=== PATIENT | female | born 1965 | race Caucasian/White ===

== ENCOUNTER 2017-12-09 07:55 | Inpatient (IN) | payer OTHER ==
[~2017-12-09] VITALS: Ht 167.6 cm; Wt 71.0 kg
[~2017-12-09 07:55] MED LIST: AMOX875 PO; CYCL-36 PO; PERC7.5T13 PO; VICO10TA PO; WARF6 PO; ZOVI400T15 PO
[2017-12-09 07:57] VITALS: BP 138/75; PULSE 91; RESP 18; TEMP 99.2; O2SAT 98
[2017-12-09] MEDS ORDERED: diphenhydrAMINE HCL 50 MG/ML VIAL IV PUSH ONE (08:15)
[2017-12-09] MEDS ORDERED: SODIUM CHLOR 0.9% 1000 ML INJ 1,000 ML IV ONE (08:15)
[2017-12-09] MEDS ORDERED: PROCHLORPERAZINE INJ 10 MG/2 ML VIAL IV PUSH ONE (08:15)
--- NOTE | 2017-12-09 08:26 | PD ---
HPI Chief Complaint: Headache Time Seen by Provider: 08:03 Travel History International Travel<30 days: No Contact w/Intl Traveler<30days: No Traveled to known affect area: No History of Present Illness HPI This is a 52-year-old female who presents to the emergency department with headache that started 5 days ago, intermittent, moderate severity mostly at the front of her head feeling like a throbbing. She says she is not prone to headaches. She says 3 weeks ago she banged her head several times on a metal box by accident. She says she vomited immediately after that but did not come to the hospital. She says over the past 5 days in the setting of the headache she is also felt quite dizzy and nauseous. She says yesterday she had a temperature of 101. She has a history of factor V Leiden and is supposed to be on Coumadin but does not take it. PFSH Past Medical History Blood Disorders: Yes (FACTOR V) Cancer: No Cardiovascular Problems: No Diminished Hearing: No Endocrine: No Gastrointestinal Disorders: Yes (COLITIS) Genitourinary: No Headaches: Yes Immune Disorder: No Musculoskeletal: No Neurologic: No Psychiatric: No Reproductive: No Respiratory: No Tetanus Vaccination: > 5 Years Influenza Vaccination: No ?: Not Past Surgical History Abdominal Surgery: Yes (CLOTS IN COLON/INTESTINE) AICD: No Arteriovenous Shunt: No Hysterectomy: Yes Insulin Pump: No Joint Replacement: No Other Surgery: Yes Social History Alcohol Use: Yes ( 7 DRINKS PER WEEK) Tobacco Use: Yes (CIGARETTES, 1 PPD) Substance Use: No Allergies-Medications (Allergen,Severity, Reaction): Coded Allergies: codeine (Verified Adverse Reaction, Severe, VOMITING, 12/09/17) Reported Meds & Prescriptions Reported Meds & Active Scripts Active No Active Prescriptions or Reported Medications Review of Systems Except as stated in HPI: all other systems reviewed are Neg Physical Exam Narrative GENERAL:Well appearing, no acute distress SKIN: Focused skin assessment warm and dry. HEAD: Atraumatic. Normocephalic. EYES: Pupils equal and round. No injection or drainage. ENT: Moist mucous membranes NECK: Trachea midline. CARDIOVASCULAR: Regular rate and rhythm. No murmur appreciated. RESPIRATORY: Clear to auscultation. Breath sounds equal bilaterally. GASTROINTESTINAL: Abdomen soft, non-tender, nondistended. MUSCULOSKELETAL: No obvious deformities. NEUROLOGICAL: Awake and alert. No obvious cranial nerve deficits. No dysarthria or aphasia. No upper or lower extremity drift. No upper extremity ataxia. Visual gr intact. PSYCHIATRIC: Appropriate mood and affect; insight and judgment normal. Data Data Last Documented VS Vital Signs Date Time Temp Pulse Resp B/P (MAP) Pulse Ox O2 Delivery O2 Flow Rate FiO2 12/09/17 08:04 78 16 99 Room Air 12/09/17 07:57 99.2 138/75 (96) Orders Orders Influenzae A/B Antigen (12/09/17 08:14) Ct Brain W/O Iv Contrast(Rout) (12/09/17 ) Complete Blood Count With Diff (12/09/17 08:14) Comprehensive Metabolic Panel (12/09/17 08:14) Urinalysis - C+S If Indicated (12/09/17 08:14) Sodium Chlor 0.9% 1000 Ml Inj (Ns 1000 M (12/09/17 08:15) Prochlorperazine Inj (Compazine Inj) (12/09/17 08:15) Diphenhydramine Inj (Benadryl Inj) (12/09/17 08:15) Mri Brain W&W/O Contrast (12/09/17 ) Mrv Brain W/Wo Contrast (12/09/17 ) Blood Gas Venous (Vbg) (12/09/17 09:15) Blood Culture (12/09/17 10:08) Lactic Acid (12/09/17 10:08) Lactic Acid Sepsis Protocol (12/09/17 10:17) Bacterial Antigen Csf (12/09/17 10:17) Csf Hsv I/Ii Dna,Pcr (12/09/17 10:17) Csf Cell Count + Differential (12/09/17 10:17) Glucose, Csf (12/09/17 10:17) Total Protein, Csf (12/09/17 10:17) Csf Culture And Gram Stain (12/09/17 10:17) Blood Culture (12/09/17 10:17) Ceftriaxone Inj (Rocephin Inj) (12/09/17 10:17) Vancomycin Inj (Vancomycin Inj) (12/09/17 11:30) Ampicillin Inj (Ampicillin Inj) (12/09/17 10:17) Acyclovir Inj (Zovirax Inj) (12/09/17 11:30) Fentanyl Inj (Fentanyl Inj) (12/09/17 10:30) Lidocaine 1% Inj (50 Ml) (Xylocaine 1% I (12/09/17 10:30) Lidocaine Pf 1% Inj (Xylocaine-Mpf 1% In (12/09/17 10:29) Admit Order (Ed Use Only) (12/09/17 11:00) Labs Laboratory Tests Test 12/09/17 08:26 12/09/17 09:24 White Blood Count 5.4 TH/MM3 Red Blood Count 4.67 MIL/MM3 Hemoglobin 14.2 GM/DL Hematocrit 42.9 % Mean Corpuscular Volume 91.8 FL Mean Corpuscular Hemoglobin 30.4 PG Mean Corpuscular Hemoglobin Concent 33.1 % Red Cell Distribution Width 13.3 % Platelet Count 163 TH/MM3 Mean Platelet Volume 8.4 FL CBC Comment AUTO DIFF Differential Total Cells Counted 100 Neutrophils % (Manual) 44 % Band Neutrophils % 32 % Lymphocytes % 13 % Monocytes % 8 % Eosinophils % 1 % Basophils % 1 % Neutrophils # (Manual) 4.2 TH/MM3 Myelocytes 1 % Differential Comment FINAL DIFF MANUAL Platelet Estimate NORMAL Platelet Morphology Comment NORMAL Red Cell Morphology Comment NORMAL Urine Color YELLOW Urine Turbidity CLEAR Urine pH 6.0 Urine Specific [place] 1.020 Urine Protein 30 mg/dL Urine Glucose (UA) NEG mg/dL Urine Ketones TRACE mg/dL Urine Occult Blood NEG Urine Nitrite NEG Urine Bilirubin NEG Urine Urobilinogen LESS THAN 2.0 MG/DL Urine Leukocyte Esterase NEG Urine RBC 5 /hpf Urine WBC 1 /hpf Urine Squamous Epithelial Cells 1 /hpf Urine Mucus FEW /lpf Microscopic Urinalysis Comment CULT NOT INDICATED Blood Urea Nitrogen 9 MG/DL Creatinine 0.63 MG/DL Random Glucose 92 MG/DL Total Protein 7.6 GM/DL Albumin 3.4 GM/DL Calcium Level 8.2 MG/DL Alkaline Phosphatase 99 U/L Aspartate Amino Transf (AST/SGOT) 52 U/L Alanine Aminotransferase (ALT/SGPT) 32 U/L Total Bilirubin 0.4 MG/DL Sodium Level 134 MEQ/L Potassium Level 4.9 MEQ/L Chloride Level 107 MEQ/L Carbon Dioxide Level 17.0 MEQ/L Anion Gap 10 MEQ/L Estimat Glomerular Filtration Rate 98 ML/MIN Blood Gas Puncture Site RN OBTAINED SAMPLE Blood Gas Patient Temperature 98.6 Venous Blood pH 7.38 Venous Blood Partial Pressure CO2 46 mmHg Venous Blood Partial Pressure O2 31 mmHg Venous Blood HCO3 26 mmol/L Venous Blood Oxygen Saturation 58 % Venous Blood Oxygen Content 10.6 Vol % Venous Blood Base Excess 1.7 mmol/L Oxygen Delivery Device ROOM AIR MDM Medical Decision Making Medical Screen Exam Complete: Yes Emergency Medical Condition: Yes Interpretation(s) No leukocytosis 32% bands Bicarb is 17 Lactic acid is 0.5 VBG: PH is 7.38 Urinalysis is negative for infection Last 24 hours Impressions Head/Brain Mag Res Venography 12/09/17 0000 Signed Impressions: Service Date/Time: Saturday, December 09, 2017 11:28 - CONCLUSION: Negative exam. Dural sinuses are patent throughout. Grant Arriaza MD Head CT 12/09/17 0000 Signed Impressions: Service Date/Time: Saturday, December 09, 2017 08:49 - CONCLUSION: 1. No acute intracranial abnormality is identified. Tuan Skinner MD Brain MRI 12/09/17 0000 Signed Impressions: Service Date/Time: Saturday, December 09, 2017 11:28 - CONCLUSION: No acute disease. Dung Matute MD Differential Diagnosis Meningitis, encephalitis, migraine headache, sinusitis, viral syndrome, influenza, dural vein thrombosis Narrative Course This is a 52-year-old female who presents to the emergency department with an intractable headache that has been going on for several days associated with a fever overnight to 101. She is ill-appearing on exam. She was placed on a monitor and an IV was established. Labs are unremarkable except for a 32% bandemia increasing my suspicion for underlying infectious etiology of her symptoms. I attempted a lumbar puncture in the emergency department but was unsuccessful. Patient will be admitted for broad-spectrum antibiotics to cover for meningitis, MRI MRV was also obtained given the patient's history of hypercoagulopathy to rule out dural vein thrombosis. We will obtain a lumbar puncture under radiology guidance. Physician Communication Physician Communication Discussed with Dr. Murry Diagnosis Primary Impression: Headache Qualified Codes: R51 - Headache Admitting Information Admitting Physician Requests: Admit Scripts No Active Prescriptions or Reported Meds Florencia Alvarez MD December 09, 2017 08:26
[2017-12-09 08:54] LABS: HEMATOCRIT 42.9 % (35.0-46.0); HEMOGLOBIN 14.2 GM/DL (11.6-15.3); MEAN CELL VOLUME 91.8 FL (80.0-100.0); MEAN CORPUSCULAR HEMOGLOBIN 30.4 PG (27.0-34.0); MEAN CORPUSCULAR HGB CONC 33.1 % (32.0-36.0); MEAN PLATELET VOLUME 8.4 FL (7.0-11.0); PLATELET COUNT 163 TH/MM3 (150-450); RED BLOOD COUNT 4.67 MIL/MM3 (4.00-5.30); RED CELL DISTRIBUTION WIDTH 13.3 % (11.6-17.2); WHITE BLOOD COUNT 5.4 TH/MM3 (4.0-11.0)
[2017-12-09 09:09] LABS: BILIRUBIN, URINE NEG (NEG); BLOOD, URINE NEG (NEG); GLUCOSE,URINE NEG (NEG); KETONE, URINE TRACE mg/dL (NEG); MUCUS URINE FEW /lpf (OCC); NITRITE,URINE NEG (NEG); SQUAMOUS EPITHELIAL CELL URINE 1 /hpf (0-5); URINE COLOR YELLOW (YELLW/STRAW); URINE LEUKOCYTE ESTERASE NEG (NEG)
[2017-12-09 09:10] LABS: ALBUMIN 3.4 GM/DL (3.4-5.0); AST (GOT) 52 U/L (15-37); BLOOD UREA NITROGEN 9 MG/DL (7-18); CALCIUM 8.2 MG/DL (8.5-10.1); CHLORIDE 107 MEQ/L (98-107); CREATININE 0.63 MG/DL (0.50-1.00); GLOMERULAR FILTRATION RATE 98 ML/MIN (>89); GLUCOSE,RANDOM 92 MG/DL (74-106); SODIUM (NA) 134 MEQ/L (136-145)
[2017-12-09 09:11] LABS: ALT (GPT) 32 U/L (10-53)
[2017-12-09 09:13] LABS: ALKALINE PHOSPHATASE 99 U/L (45-117); TOTAL BILIRUBIN ADULT 0.4 MG/DL (0.2-1.0); TOTAL PROTEIN 7.6 GM/DL (6.4-8.2)
--- NOTE | 2017-12-09 09:13 | RADRPT ---
EXAM DATE/TIME: 12/09/2017 08:49 [facility] COMPARISON: No previous studies available for comparison. INDICATIONS : Headache and dizziness since hit head a few days ago. RADIATION DOSE: 56.35 CTDIvol (mGy) MEDICAL HISTORY : None SURGICAL HISTORY : Hysterectomy. ENCOUNTER: Initial ACUITY: 1 day PAIN SCALE: 6/10 LOCATION: cranial TECHNIQUE: Multiple contiguous axial images were obtained of the head. Using automated exposure control and adj ustment of the mA and/or kV according to patient size, radiation dose was kept as low as reasonably a chievable to obtain optimal diagnostic quality images. DICOM format image data is available electro nically for review and comparison. FINDINGS: CEREBRUM: The ventricles are normal for age. No evidence of midline shift, mass lesion, hemorrhage or acute in farction. No extra-axial fluid collections are seen. POSTERIOR FOSSA: The cerebellum and brainstem are intact. The 4th ventricle is midline. The cerebellopontine angle i s unremarkable. EXTRACRANIAL: The visualized portion of the orbits is intact. SKULL: The calvaria is intact. No evidence of skull fracture. CONCLUSION: 1. No acute intracranial abnormality is identified. Tuan Skinner MD on December 09, 2017 at 9:06 Board Certified Radiologist. This report was verified electronically.
[2017-12-09 09:35] LABS: BANDS 32 % (0-6); BASOPHILS 1 % (0-2); LYMPHOCYTES 13 % (9-44); MONOCYTES 8 % (0-8); MYELOCYTES 1 % (0-0); NEUTROPHIL # MANUAL DIFF 4.2 TH/MM3 (1.8-7.7); POLYS (SEG NEUTROPHILS) 44 % (16-70)
[2017-12-09] MEDS ORDERED: cefTRIAXone INJ 2,000 MG in SODIUM CHLORIDE 0.9% INJ 100 ML IV STA (10:17)
[2017-12-09] MEDS ORDERED: AMPICILLIN INJ 2,000 MG in SODIUM CHLORIDE 0.9% INJ 100 ML IV STA (10:17)
[2017-12-09] MEDS ORDERED: LIDOCAINE HCL 1% PF 30 ML VIAL ONE (10:29)
[2017-12-09] MEDS ORDERED: LIDOCAINE HCL 1% 50 ML VIAL INFIL ONE (10:30)
[2017-12-09] MEDS ORDERED: MAGNESIUM HYDROXIDE SUSP 30 ML CUP PO PRN (11:30)
[2017-12-09] MEDS ORDERED: SODIUM CHLORIDE 0.9% IV ONE (11:30)
[2017-12-09] MEDS ORDERED: ACYCLOVIR IV ONE (11:30)
[2017-12-09] MEDS ORDERED: SODIUM CHLORIDE 0.9% FLUSH 10 ML FLUSH IV FLUSH PRN (11:30)
[2017-12-09] MEDS ORDERED: NALOXONE HCL 0.4 MG/ML AMP IV PUSH PRN (11:30)
[2017-12-09] MEDS ORDERED: VANCOMYCIN INJ 1,550 MG in SODIUM CHLORID 0.9% 500 ML INJ 500 ML IV ONE (11:30)
[2017-12-09 11:44] LABS: INTERNATIONAL NORMALIZED RATIO 1.1 RATIO; PROTHROMBIN TIME - PATIENT 11.6 SEC (9.8-11.6)
--- NOTE | 2017-12-09 12:25 | RADRPT ---
EXAM DATE/TIME: 12/09/2017 11:28 [facility] COMPARISON: No previous studies available for comparison. INDICATIONS : Cephalgia. CONTRAST: 20 cc Omniscan (gadodiamide) IV MEDICAL HISTORY : factor 5 SURGICAL HISTORY : Hysterectomy. Tubal ligation. ENCOUNTER: Initial ACUITY: 1 day PAIN SCORE: 3/10 LOCATION: cranial TECHNIQUE: Multiplanar, multisequence MRI of the brain was performed both prior to and following the administrat ion of paramagnetic contrast. FINDINGS: CEREBRUM: The ventricles are normal for age. No evidence of midline shift, mass lesion, hemorrhage or acute in farction. No extraaxial fluid collections are seen. The pituitary gland and suprasellar cistern are normal in configuration. WHITE MATTER: No significant signal abnormalities are seen in the white matter. POSTERIOR FOSSA: The cerebellum and brainstem are intact. The 4th ventricle is midline. The cerebellopontine angle is unremarkable. The cerebellar tonsils are normal in position. DIFFUSION IMAGING: No focal areas of restricted diffusion are seen. No evidence of acute infarction. EXTRACRANIAL: The visualized portions of the orbits and paranasal sinuses are unremarkable. POST-CONTRAST: No abnormal areas of parenchymal or dural enhancement. No evidence of blood-brain barrier breakdown. CONCLUSION: No acute disease. Dung Matute MD on December 09, 2017 at 12:23 Board Certified Radiologist. This report was verified electronically.
[2017-12-09] MEDS ORDERED: GADODIAMIDE PF 287 MG/ML 20 ML VIAL (for RAD MRI) IVCONTRAST ONE (12:30)
[2017-12-09 12:35] VITALS: BP 132/79; PULSE 100; RESP 18; TEMP 98.9; O2SAT 99
--- NOTE | 2017-12-09 12:36 | HHI.HP ---
[facility] Primary Care Physician No Primary Care Physician Admission Diagnosis sepsis Diagnoses: Travel History International Travel<30 Days: No Contact w/Intl Traveler <30 Da: No Traveled to Known Affected Are: No History of Present Illness Mrs. Galdamez is a 52 year old female. She came into the hospital today mostly because of headache with some neck involvement. She has been having fevers at home. Symptoms started approximately 3 days ago. Her only sick contact has been her boyfriend who has a viral upper respiratory tract infection. 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 Progressive headaches with some neck stiffness and back pain. She also complains of joint pains and has been having rigors at home recently. She has decreased appetite with some nausea. No significant vomiting. No diarrhea. At baseline she is a smoker and has factor V Leiden deficiency. Maximum fever at home was 101 or in height. Affected headache areas are frontal and occipital areas. In the ER she was started on acyclovir and vancomycin. No other complaints at this time. Lumbar puncture has been ordered and obtained, results are pending. Review of Systems Constitutional: COMPLAINS OF: Fatigue, Fever, Chills Eyes: DENIES: Diplopia, Eye inflammation, Eye pain Ears, nose, mouth, throat: DENIES: Hearing loss, Vertigo, Nasal discharge Respiratory: DENIES: Cough, Snoring, Wheezing Cardiovascular: DENIES: Chest pain, Palpitations, Syncope, Dyspnea on Exertion Gastrointestinal: COMPLAINS OF: Nausea, DENIES: Abdominal pain, Black stools, Bloody stools Musculoskeletal: COMPLAINS OF: Joint pain, Muscle aches, Stiffness, Back pain, Neck pain Integumentary: DENIES: Abnormal pigmentation, Pruritus, Rash, Nail changes Hematologic/lymphatic: DENIES: Bruising, Lymphadenopathy Immunologic/allergic: DENIES: Eczema, Urticaria Neurologic: COMPLAINS OF: Headache, DENIES: Abnormal gait, Localized weakness, Paresthesias Psychiatric: DENIES: Anxiety, Confusion, Hallucinations Past Family Social History Past Medical History Factor V Leiden deficiency History of colitis Past Surgical History Colon surgery secondary to clots Hysterectomy Reported Medications Reported Meds & Active Scripts Active No Active Prescriptions or Reported Medications None Allergies: Coded Allergies: codeine (Verified Adverse Reaction, Severe, VOMITING, 12/09/17) Family History Alzheimer's disease is present in the patient's mother The patient's father has factor V Leiden, a history of CVA and hypertension. Social History Patient drinks 1 alcoholic beverage per day Patient smokes 1 pack per day No illicit drug abuse Physical Exam Vital Signs Vital Signs Date Time Temp Pulse Resp B/P (MAP) Pulse Ox O2 Delivery O2 Flow Rate FiO2 12/09/17 08:04 78 16 99 Room Air 12/09/17 07:57 99.2 91 18 138/75 (96) 98 Physical Exam GENERAL: NAD, A&Ox3 HEAD: Normocephalic. NECK: Supple, trachea midline. No lymphadenopathy. EYES: No scleral icterus. No injection or drainage. CARDIOVASCULAR: Regular rate and rhythm without murmurs, gallops, or rubs. RESPIRATORY: Breath sounds equal bilaterally. No accessory muscle use. GASTROINTESTINAL: Abdomen soft, non-tender, nondistended. MUSCULOSKELETAL: No cyanosis, or edema. SKIN: Warm and dry. NEURO: No focal neurological deficitis. Laboratory Laboratory Tests Test 12/09/17 08:26 12/09/17 09:24 12/09/17 11:06 White Blood Count 5.4 Red Blood Count 4.67 Hemoglobin 14.2 Hematocrit 42.9 Mean Corpuscular Volume 91.8 Mean Corpuscular Hemoglobin 30.4 Mean Corpuscular Hemoglobin Concent 33.1 Red Cell Distribution Width 13.3 Platelet Count 163 Mean Platelet Volume 8.4 CBC Comment AUTO DIFF Differential Total Cells Counted 100 Neutrophils % (Manual) 44 Band Neutrophils % 32 Lymphocytes % 13 Monocytes % 8 Eosinophils % 1 Basophils % 1 Neutrophils # (Manual) 4.2 Myelocytes 1 Differential Comment FINAL DIFF MANUAL Platelet Estimate NORMAL Platelet Morphology Comment NORMAL Red Cell Morphology Comment NORMAL Urine Color YELLOW Urine Turbidity CLEAR Urine pH 6.0 Urine Specific [place] 1.020 Urine Protein 30 Urine Glucose (UA) NEG Urine Ketones TRACE Urine Occult Blood NEG Urine Nitrite NEG Urine Bilirubin NEG Urine Urobilinogen LESS THAN 2.0 Urine Leukocyte Esterase NEG Urine RBC 5 Urine WBC 1 Urine Squamous Epithelial Cells 1 Urine Mucus FEW Microscopic Urinalysis Comment CULT NOT INDICATED Blood Urea Nitrogen 9 Creatinine 0.63 Random Glucose 92 Total Protein 7.6 Albumin 3.4 Calcium Level 8.2 Alkaline Phosphatase 99 Aspartate Amino Transf (AST/SGOT) 52 Alanine Aminotransferase (ALT/SGPT) 32 Total Bilirubin 0.4 Sodium Level 134 Potassium Level 4.9 Chloride Level 107 Carbon Dioxide Level 17.0 Anion Gap 10 Estimat Glomerular Filtration Rate 98 Blood Gas Puncture Site RN OBTAINED SAMPLE Blood Gas Patient Temperature 98.6 Venous Blood pH 7.38 Venous Blood Partial Pressure CO2 46 Venous Blood Partial Pressure O2 31 Venous Blood HCO3 26 Venous Blood Oxygen Saturation 58 Venous Blood Oxygen Content 10.6 Venous Blood Base Excess 1.7 Oxygen Delivery Device ROOM AIR Prothrombin Time 11.6 Prothromb Time International Ratio 1.1 Lactic Acid Level 0.5 Date/Time Source Procedure Growth Status 12/09/17 11:05 Blood Peripheral Aerobic Blood Culture Pending Received 12/09/17 11:05 Blood Peripheral Anaerobic Blood Culture Pending Received 12/09/17 08:26 Nasal Washing Influenza Types A,B Antigen (SVETLANA) - Final NEGATIVE FOR FLU A AND B ANTIGEN.... Complete Result Diagram: 12/09/1782512/09/17825 Imaging Last Impressions Head/Brain Mag Res Venography 12/09/17 0000 Signed Impressions: Service Date/Time: Saturday, December 09, 2017 11:28 - CONCLUSION: Negative exam. Dural sinuses are patent throughout. Grant Arriaza MD Head CT 12/09/17 0000 Signed Impressions: Service Date/Time: Saturday, December 09, 2017 08:49 - CONCLUSION: 1. No acute intracranial abnormality is identified. Tuan Skinner MD Brain MRI 12/09/17 0000 Signed Impressions: Service Date/Time: Saturday, December 09, 2017 11:28 - CONCLUSION: No acute disease. Dung Matute MD Septic Shock Reassessment Septic shock perfusion: reassessment completed Caprini VTE Risk Assessment Caprini VTE Risk Assessment: No/Low Risk (score <= 1) Caprini Risk Assessment Model Point Value = 1 Point Value = 2 Point Value = 3 Point Value = 5 Age 41-60 Minor surgery BMI > 25 kg/m2 Swollen legs Varicose veins or History of unexplained or recurrent spontaneous Oral contraceptives or hormone replacement Sepsis (< 1 month) Serious lung disease, including pneumonia (< 1 month) Abnormal pulmonary function Acute myocardial infarction Congestive heart failure (< 1 month) History of inflammatory bowel disease Medical patient at bed rest Age 61-74 Arthroscopic surgery Major open surgery (> 45 min) Laparoscopic surgery (> 45 min) Malignancy Confined to bed (> 72 hours) Immobilizing plaster cast Central venous access Age >= 75 History of VTE Family history of VTE Factor V Leiden Prothrombin [id number] Lupus anticoagulant Anticardiolipin antibodies Elevated serum homocysteine Heparin-induced thrombocytopenia Other congenital or acquired thrombophilia Stroke (< 1 month) Elective arthroplasty Hip, pelvis, or leg fracture Acute spinal cord injury (< 1 month) Prophylaxis Regimen Total Risk Factor Score Risk Level Prophylaxis Regimen 0-1 Low Early ambulation 2 Moderate Order ONE of the following: *Sequential Compression Device (SCD) *Heparin 5000 units SQ BID 3-4 Higher Order ONE of the following medications: *Heparin 5000 units SQ TID *Enoxaparin/Lovenox 40 mg SQ daily (WT < 150 kg, CrCl > 30 mL/min) *Enoxaparin/Lovenox 30 mg SQ daily (WT < 150 kg, CrCl > 10-29 mL/min) *Enoxaparin/Lovenox 30 mg SQ BID (WT < 150 kg, CrCl > 30 mL/min) AND/OR *Sequential Compression Device (SCD) 5 or more Highest Order ONE of the following medications: *Heparin 5000 units SQ TID (Preferred with Epidurals) *Enoxaparin/Lovenox 40 mg SQ daily (WT < 150 kg, CrCl > 30 mL/min) *Enoxaparin/Lovenox 30 mg SQ daily (WT < 150 kg, CrCl > 10-29 mL/min) *Enoxaparin/Lovenox 30 mg SQ BID (WT < 150 kg, CrCl > 30 mL/min) AND *Sequential Compression Device (SCD) Assessment and Plan Problem List: (1) Meningitis ICD Code: G03.9 - Meningitis, unspecified (2) Factor V Leiden ICD Code: D68.51 - Activated protein C resistance Assessment and Plan 52-year-old female admitted secondary to suspicious meningitis Meningitis Viral versus bacterial Follow lumbar puncture results Follow cerebrospinal fluid cultures Vancomycin Acyclovir Continue antiemetics Continue pain treatments as needed Follow for improvement Factor V Leiden deficiency Follow clinically No active bleeding Nicotine dependence NicoDerm Patient counseled for smoking DVT prophylaxis SCDs Tuan Murry MD December 09, 2017 12:36
[2017-12-09] MEDS: SODIUM CHLOR 0.9% 1000 ML INJ 1,000 ML IV SCH ×2 (12:42→23:00)
--- NOTE | 2017-12-09 13:04 | RADRPT ---
EXAM DATE/TIME: 12/09/2017 11:28 COMPARISON: MRI BRAIN W & W/O CONTRAST, December 09, 2017, 11:28. INDICATIONS : Cephalgia. CONTRAST: 20 cc Omniscan (gadodiamide) IV MEDICAL HISTORY : factor 5 SURGICAL HISTORY : Hysterectomy. Tubal ligation. ENCOUNTER: Initial ACUITY: 1 day PAIN SCORE: 3/10 LOCATION: cranial FINDINGS: Dural sinuses are patent throughout. CONCLUSION: Negative exam. Dural sinuses are patent throughout. Grant Arriaza MD on December 09, 2017 at 12:59 Board Certified Radiologist. This report was verified electronically.
[2017-12-09] MEDS ORDERED: Vancomycin Consult Pharmacy 1 EA OTHER SCH (15:15)
--- NOTE | 2017-12-09 15:22 | RADRPT ---
EXAM DATE/TIME: 12/09/2017 14:07 [facility] COMPARISON: No previous studies available for comparison. INDICATIONS : Patient with a history of headaches. MEDICAL HISTORY : Factor V Colitis Headaches SURGICAL HISTORY : None ENCOUNTER: Initial ACUITY: 1 day PAIN SCORE: 4/10 LOCATION: Headache LUMBAR PUNCTURE TIME: 1402 hours FLUORO TIME: 0.35 minutes IMAGE SERIES: 1 ACCESS LEVEL: L4-5 FLUID: 11.5 cc of clear CSF was collected and sent to the laboratory for analysis. PROCEDURE : 1. Fluoroscopic guided lumbar puncture. The risks, benefits and alternatives to the procedure were explained and verbal and written consent w as obtained. The site was prepped in sterile fashion. Full sterile technique was used, including ca p, mask, sterile gloves and gown and a large sterile sheet. Hand hygiene and 2% chlorhexidine and/or betadine/alcohol prep was utilized per protocol for cutaneous antisepsis. The skin and subcutaneous tissues were infiltrated with local anesthetic solution. With fluoroscopic guidance the lumbar thecal sac was punctured at the level above. The fluid describ ed above was removed without difficulty. The patient tolerated the procedure well and there were no complications. CONCLUSION: Uncomplicated fluoroscopically guided lumbar puncture. Denzel Yip MD on December 09, 2017 at 15:19 Board Certified Radiologist. This report was verified electronically.
[2017-12-09] MEDS ORDERED: NICOTINE 21 MG/24 HR PATCH T-DERMAL ONE (15:30)
[2017-12-09 16:00] VITALS: BP 105/56; PULSE 82; RESP 18; TEMP 99.3; O2SAT 92
[2017-12-09 17:43] LABS: RBC TUBE #2 3 /MM3; SUPERNATE COLOR TUBE #1 CLEAR (CLEAR); VOLUME TUBE # 1 2.8 ML; WBC TUBE #2 5 /MM3 (0-10)
[2017-12-09 17:44] LABS: CSF LYMPHOCYTES 99 %; CSF MONOCYTES 1 %; CSF NEUTROPHILS 0 %
[2017-12-09 20:00] VITALS: BP 135/74; PULSE 80; RESP 18; TEMP 100.7; O2SAT 96
[2017-12-09] MEDS ORDERED: ACETAMINOPHEN 325 MG TAB PO ONE (20:45)
[2017-12-09] MEDS: SODIUM CHLORIDE 0.9% FLUSH 10 ML FLUSH IV FLUSH SCH (20:56)
[2017-12-09] MEDS: SODIUM CHLORIDE 0.9% IV SCH (20:56)
[2017-12-09] MEDS: ACYCLOVIR IV SCH (20:56)
[2017-12-09] MEDS ORDERED: VANCOMYCIN INJ 1,000 MG in SODIUM CHLOR 0.9% 250 ML INJ 250 ML IV SCH (23:00)
[2017-12-10] VITALS: BP 114/55; PULSE 70; RESP 18; TEMP 98.8; O2SAT 97
[2017-12-10 04:00] VITALS: BP 130/65; PULSE 73; RESP 18; TEMP 98.3; O2SAT 95
[2017-12-10] MEDS: SODIUM CHLOR 0.9% 1000 ML INJ 1,000 ML IV SCH ×2 (04:23→19:09)
[2017-12-10] MEDS: VANCOMYCIN INJ 1,250 MG in SODIUM CHLOR 0.9% 250 ML INJ 250 ML IV SCH ×2 (04:23→15:07)
[2017-12-10] MEDS: ACETAMINOPHEN/HYDROcodone 325 MG/5 MG TAB PO PRN ×2 (04:40→19:08)
[2017-12-10] MEDS: SODIUM CHLORIDE 0.9% IV SCH ×2 (05:50→13:05)
[2017-12-10] MEDS: ACYCLOVIR IV SCH ×2 (05:50→13:05)
[2017-12-10] MEDS: ONDANSETRON ODT 4 MG TAB PO PRN ×3 (07:42→19:08)
[2017-12-10] MEDS: SODIUM CHLORIDE 0.9% FLUSH 10 ML FLUSH IV FLUSH SCH ×2 (07:43→21:00)
[2017-12-10] MEDS: NICOTINE 21 MG/24 HR PATCH T-DERMAL SCH (07:43)
[2017-12-10] MEDS: ACETAMINOPHEN/HYDROcodone 325 MG/10 MG TAB PO PRN ×2 (07:43→13:05)
[2017-12-10] MEDS: REMOVE OLD PATCH T-DERMAL SCH (07:46)
[2017-12-10 08:00] VITALS: BP 112/70; PULSE 75; RESP 18; TEMP 97.3; O2SAT 95
[2017-12-10 08:46] LABS: AUTOMATED NEUTROPHIL # 1.4 TH/MM3 (1.8-7.7); BASOPHIL % 0.6 % (0.0-2.0); EOSINOPHIL # 0.1 TH/MM3 (0-0.4); HEMOGLOBIN 12.7 GM/DL (11.6-15.3); LYMPH % 42.3 % (9.0-44.0); LYMPHOCYTE # 1.5 TH/MM3 (1.0-4.8); MEAN CELL VOLUME 92.2 FL (80.0-100.0); MEAN CORPUSCULAR HEMOGLOBIN 30.9 PG (27.0-34.0); MEAN CORPUSCULAR HGB CONC 33.5 % (32.0-36.0); MEAN PLATELET VOLUME 8.8 FL (7.0-11.0); MONO % 14.1 % (0.0-8.0); MONOCYTE # 0.5 TH/MM3 (0-0.9); PLATELET COUNT 129 TH/MM3 (150-450); RED BLOOD COUNT 4.12 MIL/MM3 (4.00-5.30); RED CELL DISTRIBUTION WIDTH 13.6 % (11.6-17.2); WHITE BLOOD COUNT 3.5 TH/MM3 (4.0-11.0)
[2017-12-10 09:23] LABS: ALBUMIN 3.1 GM/DL (3.4-5.0); ALKALINE PHOSPHATASE 77 U/L (45-117); ALT (GPT) 23 U/L (10-53); AST (GOT) 23 U/L (15-37); BICARBONATE 27.1 MEQ/L (21.0-32.0); BLOOD UREA NITROGEN 7 MG/DL (7-18); CHLORIDE 108 MEQ/L (98-107); CREATININE 0.57 MG/DL (0.50-1.00); GLOMERULAR FILTRATION RATE 111 ML/MIN (>89); GLUCOSE,RANDOM 103 MG/DL (74-106); SODIUM (NA) 143 MEQ/L (136-145); TOTAL BILIRUBIN ADULT 0.2 MG/DL (0.2-1.0); TOTAL PROTEIN 6.5 GM/DL (6.4-8.2)
[2017-12-10] MEDS ORDERED: cefTRIAXone INJ 2,000 MG in SODIUM CHLORIDE 0.9% INJ 100 ML IV SCH (10:00)
--- NOTE | 2017-12-10 10:37 | HHI.PR ---
Subjective Remarks Patient says that headache has abated after most recent pain medication. Denies any chest pain shortness of breath. Denies nausea or vomiting. Denies upper respiratory symptoms. Objective Vital Signs Date Time Temp Pulse Resp B/P (MAP) Pulse Ox O2 Delivery O2 Flow Rate FiO2 12/10/17 04:00 98.3 73 18 130/65 (86) 95 12/10/17 00:00 98.8 70 18 114/55 (74) 97 12/09/17 20:00 100.7 80 18 135/74 (94) 96 12/09/17 16:00 99.3 82 18 105/56 (72) 92 12/09/17 12:35 98.9 100 18 132/79 (96) 99 I/O 12/09/17 12/09/17 12/09/17 12/10/17 12/10/17 12/10/17 06:59 14:59 22:59 06:59 14:59 22:59 Intake Total 1100 ml 700 ml 1150 ml Balance 1100 ml 700 ml 1150 ml Intake IV Total 1100 ml 700 ml 1150 ml # Voids 3 3 Result Diagram: 12/10/1770412/10/17704 Objective Remarks GENERAL: Patient sitting up in bed. Appears comfortable. SKIN: Warm and dry. HEAD: Normocephalic. EYES: No scleral icterus. No injection or drainage. NECK: Supple, trachea midline. No JVD. CARDIOVASCULAR: Regular rate and rhythm without murmurs, gallops, or rubs. RESPIRATORY: Breath sounds equal bilaterally. No accessory muscle use. GASTROINTESTINAL: Abdomen soft, non-tender, nondistended. MUSCULOSKELETAL: No cyanosis, or edema. BACK: Nontender without obvious deformity. No CVA tenderness. A/P Assessment and Plan 52-year-old female admitted secondary to suspicious meningitis //Sepsis //Meningitis Viral versus bacterial Follow lumbar puncture results Follow cerebrospinal fluid cultures Vancomycin Acyclovir Continue antiemetics Continue pain treatments as needed Follow for improvement = With fever 100.7 overnight, leukopenia of 3.5. Neutrophils 1.4. Bands 32 on admission. LP results with predominant lymphocytes. Unlikely bacterial etiology. Viral workup pending. Consult infectious disease. /Factor V Leiden deficiency Follow clinically = Hold off on chemical anticoagulation secondary to recent LP. /Nicotine dependence NicoDerm Patient counseled for smoking /DVT prophylaxis SCDs Discharge Planning When labs and fevers improved. Dinesh Madrigal MD December 10, 2017 10:37
[2017-12-10 12:00] VITALS: BP 106/66; PULSE 74; RESP 16; TEMP 98.3; O2SAT 96
--- NOTE | 2017-12-10 14:22 | PD.ID.CON ---
History of Present Illness Service Infectious disease Consult Requested By Hospitalist service Reason for Consult Evaluation and management of suspected viral meningitis Primary Care Physician No Primary Care Physician Diagnoses: History of Present Illness Patient seen and examined with Dr. Andrade This is a 52-year-old female with past medical history significant for factor V Leiden and is supposed to be on Coumadin but does not take and history of colitis who presented to [facility] ED with complaints of progressive headache with associated neck stiffness. Patient underwent lumbar puncture in the ED and was started on empiric treatment for suspected meningitis with IV acyclovir, Rocephin and Vancomycin. Lumbar puncture was obtained and was not suggestive of bacterial etiology but did reveal predominant lymphocytes. She had fever of 100.7. CBC revealed white count of 5.4, hemoglobin 14.2, hematocrit 42.9 and platelet count of 163. Chemistry panel significant for bicarb of 17.0 and mildly elevated AST of 52. CSF culture showed no growth in 24 hours. Blood culture showed no growth in 1 day. Negative for flu antigen. Patient's undergone a CT of the head, MRV and MRI of the brain all of which have been unremarkable. Infectious disease consultation has been requested for evaluation and management of suspected meningitis. Patient seen and examined. Overnight, patient spiked a temperature of 100.7. She is currently afebrile. Patient states her symptoms began about 3 days ago with progressive throbbing headache and neck pain. She reports associated muscle pains and body aches. She states she had a temperature 101 at home. She denies any upper respiratory symptoms such as cough or runny nose. 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 She reports that her boyfriend had a upper respiratory tract infection last week. She denies any previous history of meningitis. She denies any known history of HIV or hepatitis. She does report a previous history of shingles. She denies any recent travel. She does have a previous history of pneumonia. Patient states that her headache is controlled at present. She denies any fever chills. She denies any nausea vomiting or abdominal pain. She denies any complaints of dysuria or diarrhea. Patient admits to smoking a pack of cigarettes a day. (Page Arita) Review of Systems Except as stated in HPI: all other systems reviewed are Neg (Page Arita) Past Family Social History Allergies: Coded Allergies: codeine (Verified Adverse Reaction, Severe, VOMITING, 12/09/17) Past Medical History Factor V Leiden Hx of colitis Previous herpes zoster infection History of previous pneumonia Past Surgical History Colon surgery secondary to clots Hysterectomy Reported Medications No Active Prescriptions or Reported Medications Active Ordered Medications Current Medications Medications (Trade) Dose Ordered Sig/Essie Route Start Time Stop Time Status Last Admin Sodium Chloride 1,000 ml @ 100 mls/hr Q10H IV 12/09/17 13:00 12/10/17 04:23 (NS Flush) 2 ml UNSCH PRN IV FLUSH 12/09/17 11:30 (NS Flush) 2 ml BID IV FLUSH 12/09/17 21:00 (Zofran Odt) 4 mg Q6H PRN PO 12/09/17 12:30 12/10/17 13:05 ([place] 5-325 Mg) 1 tab Q4H PRN PO 12/09/17 11:30 12/10/17 04:40 ([place] 10-325 Mg) 1 tab Q4H PRN PO 12/09/17 11:30 12/10/17 13:05 (Narcan Inj) 0.4 mg UNSCH PRN IV PUSH 12/09/17 11:30 (Milk Of Magnesia Liq) 30 ml Q12H PRN PO 12/09/17 11:30 (Habitrol 21 Mg Patch.24 Hr) 1 patch DAILY T-DERMAL 12/10/17 09:00 12/10/17 07:43 Miscellaneous Information 1 DAILY T-DERMAL 12/10/17 09:00 12/10/17 07:46 Acyclovir Sodium 620 mg/Sodium Chloride 150 ml @ 150 mls/hr Q8HR IV 12/09/17 20:00 12/10/17 13:05 Pharmacy Profile Note 0 ml @ 0 mls/hr UNSCH OTHER 12/09/17 15:15 Vancomycin HCl 1250 mg/Sodium Chloride 262.5 ml @ 250 mls/hr Q12H IV 12/10/17 03:00 12/10/17 04:23 ([facility] Ordered Lab Info) SPECIFIC LAB TO BE DRAWN:VANCOMYCIN TROUGH DATE TO... ONCE ONCE .XX 12/11/17 02:45 12/11/17 02:46 Ceftriaxone Sodium 2000 mg/ Sodium Chloride 100 ml @ 200 mls/hr Q12H IV 12/10/17 10:00 12/10/17 10:33 Family History Father, COPD, HTN, CVA, Factor V Leiden deficiency Mother, Alzheimer's Brother, mouth and throat cancer Social History Patient reports tobacco use of one pack per day. She states that she drinks 1 alcoholic beverage per day. Patient denies any illicit drug use. (Page rAita) Physical Exam Vital Signs Vital Signs Date Time Temp Pulse Resp B/P (MAP) Pulse Ox O2 Delivery O2 Flow Rate FiO2 12/10/17 12:00 98.3 74 16 106/66 (79) 96 12/10/17 08:00 97.3 75 18 112/70 (84) 95 12/10/17 04:00 98.3 73 18 130/65 (86) 95 12/10/17 00:00 98.8 70 18 114/55 (74) 97 12/09/17 20:00 100.7 80 18 135/74 (94) 96 12/09/17 16:00 99.3 82 18 105/56 (72) 92 Physical Exam GENERAL: This is a well-nourished, well-developed female patient, in no apparent distress. Awake and alert. Appears comfortable. SKIN: No rashes, ecchymoses or lesions. Cool and dry. HEAD: Atraumatic. Normocephalic. No temporal or scalp tenderness. EYES: Pupils equal round and reactive. Extraocular motions intact. No scleral icterus. No injection or drainage. ENT: Nose without bleeding or purulent drainage. Throat without erythema, tonsillar hypertrophy or exudate. Uvula midline. Airway patent. No oral lesions. NECK: Trachea midline. No JVD or lymphadenopathy. Supple, nontender, no meningeal signs. No neck stiffness. CARDIOVASCULAR: Regular rate and rhythm without murmurs, gallops, or rubs. RESPIRATORY: Nonlabored. Bibasilar crackles noted on exam. Breath sounds equal bilaterally. No wheezes, rales, or rhonchi. GASTROINTESTINAL: Abdomen soft, non-tender, nondistended. No hepato-splenomegaly , or palpable masses. No guarding. MUSCULOSKELETAL: Extremities without clubbing, cyanosis, or edema. No joint tenderness, effusion, or edema noted. No calf tenderness. NEUROLOGICAL: Awake and alert. Cranial nerves II through XII intact. Motor and sensory grossly within normal limits. No focal neurologic finding appreciated. Normal speech. PSYCHIATRIC: Appropriate mood and affect. Normal judgment and insight. Calm and cooperative to exam. PIV with no e/o infection Laboratory Laboratory Tests Test 12/09/17 17:42 12/10/17 07:05 Lactic Acid Level 0.5 White Blood Count 3.5 Red Blood Count 4.12 Hemoglobin 12.7 Hematocrit 38.0 Mean Corpuscular Volume 92.2 Mean Corpuscular Hemoglobin 30.9 Mean Corpuscular Hemoglobin Concent 33.5 Red Cell Distribution Width 13.6 Platelet Count 129 Mean Platelet Volume 8.8 Neutrophils (%) (Auto) 41.0 Lymphocytes (%) (Auto) 42.3 Monocytes (%) (Auto) 14.1 Eosinophils (%) (Auto) 2.0 Basophils (%) (Auto) 0.6 Neutrophils # (Auto) 1.4 Lymphocytes # (Auto) 1.5 Monocytes # (Auto) 0.5 Eosinophils # (Auto) 0.1 Basophils # (Auto) 0.0 CBC Comment DIFF FINAL Differential Comment Blood Urea Nitrogen 7 Creatinine 0.57 Random Glucose 103 Total Protein 6.5 Albumin 3.1 Calcium Level 8.0 Alkaline Phosphatase 77 Aspartate Amino Transf (AST/SGOT) 23 Alanine Aminotransferase (ALT/SGPT) 23 Total Bilirubin 0.2 Sodium Level 143 Potassium Level 4.0 Chloride Level 108 Carbon Dioxide Level 27.1 Anion Gap 8 Estimat Glomerular Filtration Rate 111 Date/Time Source Procedure Growth Status 12/09/17 11:05 Blood Peripheral Aerobic Blood Culture - Preliminary NO GROWTH IN 1 DAY Resulted 12/09/17 11:05 Blood Peripheral Anaerobic Blood Culture - Preliminary NO GROWTH IN 1 DAY Resulted 12/09/17 14:03 Cerebral Spinal Fluid Lumbar Puncture Gram Stain - Final Resulted 12/09/17 14:03 Cerebral Spinal Fluid Lumbar Puncture CSF Culture - Preliminary NO GROWTH IN 24 HOURS. Resulted 12/09/17 08:26 Nasal Washing Influenza Types A,B Antigen ([facility]) - Final NEGATIVE FOR FLU A AND B ANTIGEN.... Complete (Page Arita) Result Diagram: 12/10/17 0705 12/10/17 0705 Imaging Last Impressions Lumbar Puncture Fluoroscopy 12/09/17 0000 Signed Impressions: Service Date/Time: Thursday, December 09, 2017 14:07 - CONCLUSION: Uncomplicated fluoroscopically guided lumbar puncture. Denzel Yip MD Head/Brain Mag Res Venography 12/09/17 0000 Signed Impressions: Service Date/Time: Saturday, December 09, 2017 11:28 - CONCLUSION: Negative exam. Dural sinuses are patent throughout. Grant Arriaza MD Head CT 12/09/17 0000 Signed Impressions: Service Date/Time: Saturday, December 09, 2017 08:49 - CONCLUSION: 1. No acute intracranial abnormality is identified. Tuan Skinner MD Brain MRI 12/09/17 0000 Signed Impressions: Service Date/Time: Saturday, December 09, 2017 11:28 - CONCLUSION: No acute disease. Dung Matute MD (Page Arita) Assessment and Plan Assessment and Plan Cephalgia with body aches and pain, suspect secondary to viral illness Unlikely viral meningitis Factor V Leiden History of herpes zoster History of pneumonia Ongoing tobaccoism RECS: Continue on IV ceftriaxone, acyclovir and vancomycin for now Obtain CXR Order RPR, Hepatitis profile and HIV -discussed with patient who gave consent for HIV testing Add HSV and Varicella to CSF studies respiratory panel ordered Obtain pro calcitonin level Monitor for clinical improvement Further recommendations to follow (Page Arita) Assessment and Plan The exam, history, and the medical decision-making described in the above note were completed with the assistance of the mid-level provider. I reviewed and agree with the findings presented. I attest that I had a [id number] encounter with the patient on the same day, and personally performed and documented my assessment and findings in the medical record. Complains of viral prodrome. Sick people in family: boyfriend No cold sores (HSV1) No genital herpes (HSV2) reports h/o shingles On exam Basilar crackles No neck stiffness No murmur Non focal exam No vision issues Reviewed CSF findings: normal WBC, normal glucose and total protein. CSF HSV pending but does not appear to meningitis. Looks like a viral infection Recs: DC all antibiotics and acyclovir Follow Resp panel and procalcitonin. David Oviedo If no fevers overnight and clinically well will consider discharge home on no antibiotics. (Karina Andrade MD) Page Arita December 10, 2017 14:22 Karina Andrade MD December 10, 2017 19:36
--- NOTE | 2017-12-10 14:37 | RADRPT ---
EXAM DATE/TIME: 12/10/2017 14:10 [place] COMPARISON: No previous studies available for comparison. INDICATIONS : Evaluate for infiltrate MEDICAL HISTORY : factor 5 SURGICAL HISTORY : Hysterectomy. Tubal ligation. ENCOUNTER: Subsequent ACUITY: 2 days PAIN SCORE: 0/10 LOCATION: Bilateral chest FINDINGS: A single view of the chest demonstrates the lungs to be symmetrically aerated without evidence of mas s, infiltrate or effusion. The cardiomediastinal contours are unremarkable. Osseous structures are intact. CONCLUSION: No acute disease. Gemrán Richardson MD on December 10, 2017 at 14:35 Board Certified Radiologist. This report was verified electronically.
[2017-12-10 16:00] VITALS: BP 117/68; PULSE 71; RESP 18; TEMP 98.5; O2SAT 95
[2017-12-10] MEDS ORDERED: cefTRIAXone INJ 1,000 MG in SODIUM CHLORIDE 0.9% INJ 100 ML IV SCH (16:00)
[2017-12-10 20:00] VITALS: BP 122/75; PULSE 80; RESP 18; TEMP 98.8; O2SAT 97
[2017-12-11] VITALS: BP 143/67; PULSE 89; RESP 18; TEMP 98.4; O2SAT 95
[2017-12-11] MEDS ORDERED: PHARMACY ORDERED LAB ONE (02:45)
[2017-12-11 04:00] VITALS: BP 121/60; PULSE 80; RESP 18; TEMP 98.6; O2SAT 95
[2017-12-11] MEDS: SODIUM CHLOR 0.9% 1000 ML INJ 1,000 ML IV SCH (04:49)
[2017-12-11 08:16] LABS: AUTOMATED NEUTROPHIL # 1.6 TH/MM3 (1.8-7.7); BASOPHIL % 0.5 % (0.0-2.0); EOSINOPHIL # 0.1 TH/MM3 (0-0.4); EOSINOPHIL % 2.9 % (0.0-4.0); HEMATOCRIT 41.1 % (35.0-46.0); HEMOGLOBIN 14.1 GM/DL (11.6-15.3); LYMPH % 34.1 % (9.0-44.0); LYMPHOCYTE # 1.1 TH/MM3 (1.0-4.8); MEAN CELL VOLUME 89.5 FL (80.0-100.0); MEAN CORPUSCULAR HEMOGLOBIN 30.6 PG (27.0-34.0); MEAN CORPUSCULAR HGB CONC 34.2 % (32.0-36.0); MEAN PLATELET VOLUME 8.1 FL (7.0-11.0); MONO % 11.2 % (0.0-8.0); MONOCYTE # 0.4 TH/MM3 (0-0.9); NEUT % 51.3 % (16.0-70.0); PLATELET COUNT 148 TH/MM3 (150-450); RED BLOOD COUNT 4.59 MIL/MM3 (4.00-5.30); RED CELL DISTRIBUTION WIDTH 13.3 % (11.6-17.2); WHITE BLOOD COUNT 3.2 TH/MM3 (4.0-11.0)
[2017-12-11 08:29] VITALS: BP 137/74; PULSE 81; RESP 18; TEMP 98.8; O2SAT 94
[2017-12-11 08:48] LABS: BICARBONATE 29.9 MEQ/L (21.0-32.0); CREATININE 0.72 MG/DL (0.50-1.00)
[2017-12-11] MEDS: REMOVE OLD PATCH T-DERMAL SCH (09:00)
[2017-12-11 09:06] LABS: HSV 1,PCR Negative (Negative)
--- NOTE | 2017-12-11 09:29 | HHI.PR ---
Subjective Remarks Patient states that dull whole head headache continues, however improved from yesterday, off of narcotics. Denies any nausea or vomiting. Denies chest pain or shortness of breath. She is concerned about Lyme disease as [place] [facility] Objective Vital Signs Date Time Temp Pulse Resp B/P (MAP) Pulse Ox O2 Delivery O2 Flow Rate FiO2 12/11/17 08:29 98.8 81 18 137/74 (95) 94 12/11/17 04:00 98.6 80 18 121/60 (80) 95 12/11/17 00:00 98.4 89 18 143/67 (92) 95 12/10/17 20:00 98.8 80 18 122/75 (91) 97 12/10/17 16:00 98.5 71 18 117/68 (84) 95 12/10/17 12:00 98.3 74 16 106/66 (79) 96 I/O 12/10/17 12/10/17 12/10/17 12/11/17 12/11/17 12/11/17 07:00 15:00 23:00 07:00 15:00 23:00 Intake Total 1150 ml 500 ml Balance 1150 ml 500 ml Intake IV Total 1150 ml 500 ml # Voids 3 4 # Bowel Movements 1 Result Diagram: 12/11/1731 12/11/17730 Objective Remarks GENERAL: Patient sitting up in bed. Appears comfortable. No change on exam. SKIN: Warm and dry. HEAD: Normocephalic. EYES: No scleral icterus. No injection or drainage. NECK: Supple, trachea midline. No JVD. CARDIOVASCULAR: Regular rate and rhythm without murmurs, gallops, or rubs. RESPIRATORY: Breath sounds equal bilaterally. No accessory muscle use. GASTROINTESTINAL: Abdomen soft, non-tender, nondistended. MUSCULOSKELETAL: No cyanosis, or edema. BACK: Nontender without obvious deformity. No CVA tenderness. A/P Assessment and Plan 52-year-old female admitted secondary to suspicious meningitis //Sepsis //Meningitis Viral versus bacterial Follow lumbar puncture results Follow cerebrospinal fluid cultures Vancomycin Acyclovir Continue antiemetics Continue pain treatments as needed Follow for improvement = With fever 100.7 overnight, leukopenia of 3.5. Neutrophils 1.4. Bands 32 on admission. LP results with predominant lymphocytes. Unlikely bacterial etiology. Viral workup pending. Consult infectious disease. = 12/11. No fevers overnight. Leukopenia slightly worse 3.5. Neutrophils 1.6. Will order Lyme PCR. /Factor V Leiden deficiency Follow clinically = Hold off on chemical anticoagulation secondary to recent LP. = 12/11. Start Lovenox daily. /Nicotine dependence NicoDerm -Patient has crackles bilaterally, intermittent wheezing. Likely early emphysema. Patient counseled again for smoking /DVT prophylaxis. Lovenox subcu. SCDs Discharge Planning When cleared by ID. Dinesh Madrigal MD December 11, 2017 09:29
[2017-12-11] MEDS: SODIUM CHLORIDE 0.9% FLUSH 10 ML FLUSH IV FLUSH SCH ×2 (09:57→20:46)
[2017-12-11] MEDS: ENOXAPARIN SODIUM 40 MG/0.4 ML SYRINGE SQ SCH (09:59)
[2017-12-11] MEDS: ACETAMINOPHEN 325 MG TAB PO PRN ×2 (09:59→16:07)
[2017-12-11] MEDS: ONDANSETRON ODT 4 MG TAB PO PRN (10:00)
[2017-12-11] MEDS: NICOTINE 21 MG/24 HR PATCH T-DERMAL SCH (10:04)
[2017-12-11 10:38] LABS: RPR SCREEN FOR REFLEX NON-REACTIVE (NON-REACTVE)
--- NOTE | 2017-12-11 10:53 | HHI.IDPN ---
Subjective Subjective Remarks Patient seen and examined on behalf of Dr. Andrade This is a 52-year-old female with past medical history significant for factor V Leiden and is supposed to be on Coumadin but does not take and history of colitis who presented to [facility] ED with complaints of progressive headache with associated neck stiffness. Patient underwent lumbar puncture in the ED and was started on empiric treatment for suspected meningitis with IV acyclovir, Rocephin and Vancomycin. Lumbar puncture was obtained and was not suggestive of bacterial etiology but did reveal predominant lymphocytes. She had fever of 100.7. CBC revealed white count of 5.4, hemoglobin 14.2, hematocrit 42.9 and platelet count of 163. Chemistry panel significant for bicarb of 17.0 and mildly elevated AST of 52. CSF culture showed no growth in 24 hours. Blood culture showed no growth in 1 day. Negative for flu antigen. Patient's undergone a CT of the head, MRV and MRI of the brain all of which have been unremarkable. Infectious disease consultation has been requested for evaluation and management of suspected meningitis. Patient seen and examined. Overnight, patient spiked a temperature of 100.7. She is currently afebrile. Patient states her symptoms began about 3 days ago with progressive throbbing headache and neck pain. She reports associated muscle pains and body aches. She states she had a temperature 101 at home. She denies any upper respiratory symptoms such as cough or runny nose. 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 She reports that her boyfriend had a upper respiratory tract infection last week. She denies any previous history of meningitis. She denies any known history of HIV or hepatitis. She does report a previous history of shingles. She denies any recent travel. She does have a previous history of pneumonia. Patient states that her headache is controlled at present. She denies any fever chills. She denies any nausea vomiting or abdominal pain. She denies any complaints of dysuria or diarrhea. Patient admits to smoking a pack of cigarettes a day. Notes reviewed Patient reports she is feeling better today Still with dull headache but much less severe she reports cough without any sputum production she is concerned she may have Lyme dz, she rides motorcycles in the [place] nearly every weekend, no known hx of tick bite or rash does report hx of head injury x 2 3 weeks ago when she hit her head on a metal box with emesis later that evening no fever or chills no rash + nausea yesterday, improved today no vomiting no dysuria + 3 episodes of watery diarrhea yesterday, none today afebrile WBC 3.2 Procalcitonin 0.3 Hepatitis profile, HIV and HSV testing neg, RPR pending CXR neg Antibiotics None Lines Left forearm PIV with no e/o infection Past Medical History Factor V Leiden Hx of colitis Previous herpes zoster infection History of previous pneumonia (Page Arita) Allergies: Coded Allergies: codeine (Verified Adverse Reaction, Severe, VOMITING, 12/09/17) Objective . Vital Signs Date Time Temp Pulse Resp B/P (MAP) Pulse Ox O2 Delivery O2 Flow Rate FiO2 12/11/17 08:29 98.8 81 18 137/74 (95) 94 12/11/17 04:00 98.6 80 18 121/60 (80) 95 12/11/17 00:00 98.4 89 18 143/67 (92) 95 12/10/17 20:00 98.8 80 18 122/75 (91) 97 12/10/17 16:00 98.5 71 18 117/68 (84) 95 12/10/17 12:00 98.3 74 16 106/66 (79) 96 . Laboratory Tests Test 12/10/17 07:05 12/11/17 07:31 White Blood Count 3.5 TH/MM3 3.2 TH/MM3 Red Blood Count 4.12 MIL/MM3 4.59 MIL/MM3 Hemoglobin 12.7 GM/DL 14.1 GM/DL Hematocrit 38.0 % 41.1 % Mean Corpuscular Volume 92.2 FL 89.5 FL Mean Corpuscular Hemoglobin 30.9 PG 30.6 PG Mean Corpuscular Hemoglobin Concent 33.5 % 34.2 % Red Cell Distribution Width 13.6 % 13.3 % Platelet Count 129 TH/MM3 148 TH/MM3 Mean Platelet Volume 8.8 FL 8.1 FL Neutrophils (%) (Auto) 41.0 % 51.3 % Lymphocytes (%) (Auto) 42.3 % 34.1 % Monocytes (%) (Auto) 14.1 % 11.2 % Eosinophils (%) (Auto) 2.0 % 2.9 % Basophils (%) (Auto) 0.6 % 0.5 % Neutrophils # (Auto) 1.4 TH/MM3 1.6 TH/MM3 Lymphocytes # (Auto) 1.5 TH/MM3 1.1 TH/MM3 Monocytes # (Auto) 0.5 TH/MM3 0.4 TH/MM3 Eosinophils # (Auto) 0.1 TH/MM3 0.1 TH/MM3 Basophils # (Auto) 0.0 TH/MM3 0.0 TH/MM3 CBC Comment DIFF FINAL DIFF FINAL Differential Comment Laboratory Tests Test 12/09/17 11:06 12/09/17 17:42 12/10/17 07:05 12/10/17 16:49 Lactic Acid Level 0.5 mmol/L 0.5 mmol/L Blood Urea Nitrogen 7 MG/DL Creatinine 0.57 MG/DL Random Glucose 103 MG/DL Total Protein 6.5 GM/DL Albumin 3.1 GM/DL Calcium Level 8.0 MG/DL Alkaline Phosphatase 77 U/L Aspartate Amino Transf (AST/SGOT) 23 U/L Alanine Aminotransferase (ALT/SGPT) 23 U/L Total Bilirubin 0.2 MG/DL Sodium Level 143 MEQ/L Potassium Level 4.0 MEQ/L Chloride Level 108 MEQ/L Carbon Dioxide Level 27.1 MEQ/L Anion Gap 8 MEQ/L Estimat Glomerular Filtration Rate 111 ML/MIN Procalcitonin 0.03 ng/mL Test 12/11/17 07:31 Blood Urea Nitrogen 5 MG/DL Creatinine 0.72 MG/DL Random Glucose 89 MG/DL Calcium Level 9.0 MG/DL Sodium Level 140 MEQ/L Potassium Level 4.3 MEQ/L Chloride Level 102 MEQ/L Carbon Dioxide Level 29.9 MEQ/L Anion Gap 8 MEQ/L Estimat Glomerular Filtration Rate 84 ML/MIN Microbiology Date/Time Source Procedure Growth Status 12/09/17 11:05 Blood Peripheral Aerobic Blood Culture - Preliminary NO GROWTH IN 1 DAY Resulted 12/09/17 11:05 Blood Peripheral Anaerobic Blood Culture - Preliminary NO GROWTH IN 1 DAY Resulted 12/09/17 10:50 Blood Peripheral Aerobic Blood Culture - Preliminary NO GROWTH IN 1 DAY Resulted 12/09/17 10:50 Blood Peripheral Anaerobic Blood Culture - Preliminary NO GROWTH IN 1 DAY Resulted 12/09/17 14:03 Cerebral Spinal Fluid Lumbar Puncture Gram Stain - Final Resulted 12/09/17 14:03 Cerebral Spinal Fluid Lumbar Puncture CSF Culture - Preliminary NO GROWTH IN 48 HOURS. Resulted 12/09/17 08:26 Nasal Washing Influenza Types A,B Antigen ([facility]) - Final NEGATIVE FOR FLU A AND B ANTIGEN.... Complete Imaging Last Impressions Chest X-Ray 12/10/17 0000 Signed Impressions: Service Date/Time: November 14:10 - CONCLUSION: No acute disease. Germán Richardson MD Lumbar Puncture Fluoroscopy 12/09/17 0000 Signed Impressions: Service Date/Time: Saturday, December 09, 2017 14:07 - CONCLUSION: Uncomplicated fluoroscopically guided lumbar puncture. Denzel Yip MD Head/Brain Mag Res Venography 12/09/17 0000 Signed Impressions: Service Date/Time: Saturday, December 09, 2017 11:28 - CONCLUSION: Negative exam. Dural sinuses are patent throughout. Grant Arriaza MD Head CT 12/09/17 0000 Signed Impressions: Service Date/Time: Saturday, December 09, 2017 08:49 - CONCLUSION: 1. No acute intracranial abnormality is identified. Tuan Skinner MD Brain MRI 12/09/17 0000 Signed Impressions: Service Date/Time: Saturday, December 09, 2017 11:28 - CONCLUSION: No acute disease. Dung Matute MD Physical Exam GENERAL: This is a well-nourished, well-developed female patient, in no apparent distress. Awake and alert. Appears comfortable sitting up in bed. SKIN: Warm and dry. No rash appreciated. HEAD: Atraumatic. Normocephalic. No temporal or scalp tenderness. EYES: Pupils equal round and reactive. Extraocular motions intact. No scleral icterus. No injection or drainage. ENT: Nose without bleeding or purulent drainage. Throat without erythema, tonsillar hypertrophy or exudate. Uvula midline. Airway patent. No oral lesions. NECK: Trachea midline. No lymphadenopathy. Supple, nontender, no meningeal signs. No neck stiffness. CARDIOVASCULAR: Regular rate and rhythm without murmurs, gallops, or rubs. RESPIRATORY: Nonlabored. Clear to auscultation bilaterally. Breath sounds equal bilaterally. No wheezes, rales, or rhonchi. GASTROINTESTINAL: Abdomen soft, non-tender, nondistended. No hepato-splenomegaly , or palpable masses. No guarding. MUSCULOSKELETAL: Extremities without clubbing, cyanosis, or edema. No joint tenderness, effusion, or edema noted. No calf tenderness. NEUROLOGICAL: Awake and alert. Cranial nerves II through XII grossly intact. Motor and sensory grossly within normal limits. No focal neurologic finding appreciated. Normal speech. PSYCHIATRIC: Appropriate mood and affect. Normal judgment and insight. Calm and cooperative to exam. PIV with no e/o infection (Page Arita) Assessment & Plan Remarks Cephalgia with body aches and pain, suspect secondary to viral illness Unlikely viral meningitis Patient expresses concern she might have Lyme dz, no hx of known tick bite or rash Acute bronchitis Factor V Leiden History of herpes zoster History of pneumonia Ongoing tobaccoism RECS: Start on Doxycycline 100mg BID Add Lactobacillus - instructed patient to advise nursing staff if diarrhea reoccurs Work up neg thus far Follow up on Lyme PCR ordered by primary team respiratory panel ordered then cancelled??, reordered this am, follow up on results Monitor for clinical improvement Further recommendations to follow (Page Arita) Remarks The exam, history, and the medical decision-making described in the above note were completed with the assistance of the mid-level provider. I reviewed and agree with the findings presented. I attest that I had a [id number] encounter with the patient on the same day, and personally performed and documented my assessment and findings in the medical record. Continue to observe off of IV antibiotics Check respiratory panel Start doxycycline 100 mg p.o. twice daily(this will cover Lyme disease as well as help with smoking related viral bronchitis) for total of 7 days Start lactobacillus Follow up on respiratory panel Normal pro-calcitonin PCR ordered by primary team per request of patient. If continues to do well okay to discharge from ID standpoint follow-up with Era de leon as well as Dr. steven altamirano Discussed with Dr. Madrigal as well as the patient Dr. Sandra Quijano available as needed over the weekend. (Karina Andrade MD) Page Arita December 11, 2017 10:53 Karina Andrade MD December 11, 2017 16:05
[2017-12-11 12:00] VITALS: BP 112/69; PULSE 77; RESP 18; TEMP 98.3; O2SAT 93
[2017-12-11] MEDS: DOXYCYCLINE HYCLATE 100 MG TAB PO SCH ×2 (16:07→20:46)
[2017-12-11 20:00] VITALS: BP 111/67; PULSE 74; RESP 18; TEMP 98.1; O2SAT 95
[2017-12-11] MEDS: LACTOBACILLUS ACIDOPHILUS TAB PO SCH (20:46)
[2017-12-12] VITALS: BP 107/65; PULSE 77; RESP 18; TEMP 98; O2SAT 95
[2017-12-12] MEDS: ACETAMINOPHEN 325 MG TAB PO PRN ×2 (03:47→09:41)
[2017-12-12 04:00] VITALS: BP 129/65; PULSE 67; RESP 18; TEMP 98.5; O2SAT 98
--- NOTE | 2017-12-12 07:10 | HHI.PR ---
Subjective Remarks Patient seen and examined this morning, their vitals are stable and the patient is afebrile. She states she feels 70% better. Denies CP or SOB. Has slight cough. Reports headache that is relieved with tylenol. Really wants to go home to be with family and rest there. Objective Vital Signs Date Time Temp Pulse Resp B/P (MAP) Pulse Ox O2 Delivery O2 Flow Rate FiO2 12/12/17 04:00 98.5 67 18 129/65 (86) 98 12/12/17 00:00 98.0 77 18 107/65 (79) 95 12/11/17 20:00 98.1 74 18 111/67 (82) 95 12/11/17 12:00 98.3 77 18 112/69 (83) 93 12/11/17 08:29 98.8 81 18 137/74 (95) 94 I/O 12/11/17 12/11/17 12/11/17 12/12/17 12/12/17 12/12/17 07:00 15:00 23:00 07:00 15:00 23:00 # Voids 4 3 Result Diagram: 12/11/17 0731 12/11/17 0731 Imaging Last Impressions Chest X-Ray 12/10/17 0000 Signed Impressions: Service Date/Time: November 14:10 - CONCLUSION: No acute disease. Germán Richardson MD Lumbar Puncture Fluoroscopy 12/09/17 0000 Signed Impressions: Service Date/Time: Saturday, December 09, 2017 14:07 - CONCLUSION: Uncomplicated fluoroscopically guided lumbar puncture. Denzel Yip MD Head/Brain Mag Res Venography 12/09/17 0000 Signed Impressions: Service Date/Time: Saturday, December 09, 2017 11:28 - CONCLUSION: Negative exam. Dural sinuses are patent throughout. Grant Arriaza MD Head CT 12/09/17 0000 Signed Impressions: Service Date/Time: Saturday, December 09, 2017 08:49 - CONCLUSION: 1. No acute intracranial abnormality is identified. Tuan Skinner MD Brain MRI 12/09/17 0000 Signed Impressions: Service Date/Time: Saturday, December 09, 2017 11:28 - CONCLUSION: No acute disease. Dung Matute MD Objective Remarks GENERAL: Well-appearing, no acute distress SKIN: Warm and dry. HEAD: Normocephalic. EYES: No scleral icterus. No injection or drainage. NECK: Supple, trachea midline. No JVD or lymphadenopathy. CARDIOVASCULAR: Regular rate and rhythm without murmurs, gallops, or rubs. RESPIRATORY: Breath sounds equal bilaterally. No accessory muscle use. GASTROINTESTINAL: Abdomen soft, non-tender, nondistended. MUSCULOSKELETAL: No cyanosis, or edema. A/P Problem List: (1) Sepsis ICD Code: A41.9 - Sepsis, unspecified organism (2) Headache ICD Code: R51 - Headache Status: Acute (3) Factor V Leiden ICD Code: D68.51 - Activated protein C resistance Assessment and Plan In summary this is a 52-year-old female patient presented to [facility] ER with head and neck pain. And a lumbar puncture was performed in the ER which was concerning for bacterial meningitis. The patient was started on broad-spectrum antibiotics including vancomycin, Rocephin, and acyclovir. Culture showed no growth. Infectious disease was consulted. Symptoms likely related to a viral illness. Viral meningitis less likely. Patient expressed a concern for Lyme disease because she had been [place], but there is no history of tick bite or rash. Sepsis On admission patient found to have leukocytosis, she was febrile Status post broad-spectrum antibiotics, now being worked up for Lyme disease Currently on doxycycline 100 mg p.o. twice daily 7 days (12/11) Pro calcitonin normal. Leukocytosis resolved. Per ID the patient can be observed off broad-spectrum IV antibiotics and if continues to do well may be discharged on the above antibiotic. Factor V Leiden deficiency Patient is also be on Coumadin but is noncompliant Nicotine dependence Counseled Discharge Planning D/C home this afternoon Must follow up with ID Problem Qualifiers (1) Headache: Qualified Codes: R51 - Headache Felicitas Tirado MD December 12, 2017 07:10
[2017-12-12 08:40] VITALS: BP 111/69; PULSE 75; RESP 18; TEMP 97.3; O2SAT 96
[2017-12-12] MEDS ORDERED: DOXY100T PO (09:03)
--- NOTE | 2017-12-12 09:04 | HHI.DCPOC ---
Discharge Care Plan Diagnosis: (1) Factor V Leiden (2) Headache (3) Sepsis Goals to Promote Your Health * To prevent worsening of your condition and complications * To maintain your health at the optimal level Directions to Meet Your Goals Take your medications as prescribed Follow your dietary instruction Follow activity as directed Keep your appointments as scheduled Take your immunizations and boosters as scheduled If your symptoms worsen call your PCP, if no PCP go to Urgent Care Center or Emergency Room Smoking is Dangerous to Your Health. Avoid second hand smoke Call the 24-hour hour crisis hotline for domestic abuse at Felicitas Tirado MD December 12, 2017 09:04
[2017-12-12] MEDS: DOXYCYCLINE HYCLATE 100 MG TAB PO SCH (09:26)
[2017-12-12] MEDS: LACTOBACILLUS ACIDOPHILUS TAB PO SCH (09:26)
[2017-12-12] MEDS: ENOXAPARIN SODIUM 40 MG/0.4 ML SYRINGE SQ SCH (09:27)
[2017-12-12] MEDS: REMOVE OLD PATCH T-DERMAL SCH (09:27)
[2017-12-12] MEDS: SODIUM CHLORIDE 0.9% FLUSH 10 ML FLUSH IV FLUSH SCH (09:27)
[2017-12-12] MEDS: NICOTINE 21 MG/24 HR PATCH T-DERMAL SCH (09:27)
--- NOTE | 2017-12-12 15:45 | HHI.DS ---
Discharge Summary Admission Date December 10, 2017 at 09:05 Discharge Date: December 12, 2017 Admitting Diagnosis sepsis (1) Meningitis ICD Codes: G03.9 - Meningitis, unspecified (2) Factor V Leiden ICD Codes: D68.51 - Activated protein C resistance CBC/BMP: 12/11/17 0731 12/11/17 0731 Significant Findings Laboratory Tests Test 12/09/17 17:42 12/10/17 07:05 12/10/17 15:27 12/10/17 16:49 White Blood Count 3.5 TH/MM3 (4.0-11.0) Platelet Count 129 TH/MM3 (150-450) Monocytes (%) (Auto) 14.1 % (0.0-8.0) Neutrophils # (Auto) 1.4 TH/MM3 (1.8-7.7) Albumin 3.1 GM/DL (3.4-5.0) Calcium Level 8.0 MG/DL (8.5-10.1) Chloride Level 108 MEQ/L (98-107) Test 12/11/17 07:31 12/11/17 09:44 White Blood Count 3.2 TH/MM3 (4.0-11.0) Platelet Count 148 TH/MM3 (150-450) Monocytes (%) (Auto) 11.2 % (0.0-8.0) Neutrophils # (Auto) 1.6 TH/MM3 (1.8-7.7) Blood Urea Nitrogen 5 MG/DL (7-18) Estimat Glomerular Filtration Rate 84 ML/MIN (>89) Imaging Last Impressions Chest X-Ray 12/10/17 0000 Signed Impressions: Service Date/Time: November 14:10 - CONCLUSION: No acute disease. Germán Richardson MD Lumbar Puncture Fluoroscopy 12/09/17 0000 Signed Impressions: Service Date/Time: Saturday, December 09, 2017 14:07 - CONCLUSION: Uncomplicated fluoroscopically guided lumbar puncture. Denzel Yip MD Head/Brain Mag Res Venography 12/09/17 0000 Signed Impressions: Service Date/Time: Saturday, December 09, 2017 11:28 - CONCLUSION: Negative exam. Dural sinuses are patent throughout. Grant Arriaza MD Head CT 12/09/17 0000 Signed Impressions: Service Date/Time: Saturday, December 09, 2017 08:49 - CONCLUSION: 1. No acute intracranial abnormality is identified. Tuan Skinner MD Brain MRI 12/09/17 0000 Signed Impressions: Service Date/Time: Saturday, December 09, 2017 11:28 - CONCLUSION: No acute disease. Dung Matute MD PE at Discharge GENERAL: Well-appearing, no acute distress SKIN: Warm and dry. HEAD: Normocephalic. EYES: No scleral icterus. No injection or drainage. NECK: Supple, trachea midline. No JVD or lymphadenopathy. CARDIOVASCULAR: Regular rate and rhythm without murmurs, gallops, or rubs. RESPIRATORY: Breath sounds equal bilaterally. No accessory muscle use. GASTROINTESTINAL: Abdomen soft, non-tender, nondistended. MUSCULOSKELETAL: No cyanosis, or edema. Hospital Course In summary this is a 52-year-old female patient presented to [place] ER with head and neck pain. And a lumbar puncture was performed in the ER which was concerning for bacterial meningitis. The patient was started on broad-spectrum antibiotics including vancomycin, Rocephin, and acyclovir. Culture showed no growth. Infectious disease was consulted. Symptoms likely related to a viral illness. Viral meningitis less likely. Patient expressed a concern for Lyme disease because she had been [place], but there is no history of tick bite or rash. Labs ordered for this and the patient was started on doxy to cover for this and for URI/bronchitis. She was cleared by ID for d.c with outpatient follow up for her pending labs. Pt Condition on Discharge: Stable Discharge Disposition: Discharge Home Discharge Instructions DIET: Follow Instructions for: As Tolerated, No Restrictions Additional Diet Instructions: F/u With [facility] Address: [address] [place] [id number] Activities you can perform: Regular-No Restrictions Follow up Referrals: Infectious Disease with [facility] PCP Follow-up New Medications: Doxycycline Hyclate (Doxycycline Hyclate) 100 Mg Tab 100 MG PO Q12HR for infection, #11 TAB Felicitas Tirado MD December 12, 2017 15:45
[2017-12-14 15:53] LABS: VZV PCR RESULT <500 (<500 copies)
== END 2017-12-12 10:42 | disposition home or self-care (01) | DRG 871 ==
LOC: NEPC 07:55 → NEDA 11:02 → INTOOBSV 11:02 → N05A 12:15 → OBSVTOIN 12-10 09:05
PROVIDERS: ADMIT Family Medicine; ATTEND Family Medicine
PROC: 009U3ZX Drainage of Spinal Canal, Percutaneous Approach, Diagnostic (ICD-10-PCS; principal; 2017-12-09)
PROC: B01BZZZ Fluoroscopy of Spinal Cord (ICD-10-PCS; 2017-12-09)
DX: A41.9 Sepsis, unspecified organism (principal); G03.9 Meningitis, unspecified; D68.2 Hereditary deficiency of other clotting factors; A69.20 Lyme disease, unspecified; J43.9 Emphysema, unspecified; J20.9 Acute bronchitis, unspecified; B34.9 Viral infection, unspecified; K52.9 Noninfective gastroenteritis and colitis, unspecified; M54.9 Dorsalgia, unspecified; F17.210 Nicotine dependence, cigarettes, uncomplicated; Z91.19 Patient's noncompliance with other medical treatment and regimen; Z87.01 Personal history of pneumonia (recurrent)
CPT/HCPCS: 62270; 70450; 70546; 70553; 71045; 77003; 80048; 80053; 80074; 81001; 82805; 82945; 83605; 84145; 84157; 85007; 85025; 85027; 85610; 86403; 86592; 86617; 86703; 87040; 87070; 87205; 87476; 87529; 87799; 87804; 89051; 96361; 96365; 96375; A9579; J0133; J0290; J0696; J0780; J1200; J1650; J3010; J3370; J7030; J7040; J7050